=== PATIENT | female | born 1955 | race Caucasian/White ===

== ENCOUNTER 2022-04-07 08:47 | Emergency (ER) | payer OTHER ==
[~2022-04-07] VITALS: Ht 165.1 cm; Wt 60.3 kg
[2022-04-07] MEDS ORDERED: LOSA50 PO (09:06)
[2022-04-07] MEDS ORDERED: Mupirocin22 GM TOP (09:11)
== END 2022-04-07 09:18 | disposition home or self-care (01) ==
LOC: ER 08:47
DX: L03.311 Cellulitis of abdominal wall (principal); I10 Essential (primary) hypertension; Z79.899 Other long term (current) drug therapy
CPT/HCPCS: 99282